=== PATIENT | female | born 1990 | race Two or more races ===

== ENCOUNTER 2019-04-26 10:52 | Outpatient (CLI) | payer OTHER | END 2019-04-26 10:59 | disposition home or self-care (01) | LOC: SONOGRAMA 10:52 | DX: E66.8 Other obesity (principal); E55.9 Vitamin D deficiency, unspecified; N60.12 Diffuse cystic mastopathy of left breast; N60.11 Diffuse cystic mastopathy of right breast; N87.0 Mild cervical dysplasia; L68.0 Hirsutism; N76.2 Acute vulvitis ==